=== PATIENT | female | born 1940 | race Caucasian/White ===

== ENCOUNTER 2018-05-18 21:32 | Emergency (ER) | payer SELFPAY ==
[~2018-05-18] VITALS: Ht 162.6 cm; Wt 80.0 kg
[2018-05-19] MEDS ORDERED: ACETAMINOPHEN WITH CODEINE 300/30MG TABLET PO ONE (00:15)
[2018-05-19 02:30] VITALS: BP 128/72
== END 2018-05-19 04:07 | disposition home or self-care (01) ==
LOC: ER 21:32
DX: S42.201A Unspecified fracture of upper end of right humerus, initial encounter for closed fracture (principal); Z96.649 Presence of unspecified artificial hip joint; W22.8XXA Striking against or struck by other objects, initial encounter; Y93.89 Activity, other specified; Y92.818 Other transport vehicle as the place of occurrence of the external cause; Y99.8 Other external cause status
CPT/HCPCS: 73060; 73070; 99284; A4565